=== PATIENT | male | born 1945 | race Caucasian/White ===

== ENCOUNTER → 2017-11-13 | Outpatient (CLI) | payer MEDICARE | LOC: OD 11:52 | PROVIDERS: ATTEND Radiology Radiation Oncology | DX: C61 Malignant neoplasm of prostate (principal) | CPT/HCPCS: 36415; 84153 ==

== ENCOUNTER → 2018-03-01 | Outpatient (CLI) | payer MEDICARE | LOC: OD 08:27 | PROVIDERS: ATTEND Radiology Radiation Oncology | DX: C61 Malignant neoplasm of prostate (principal); R97.20 Elevated prostate specific antigen [PSA] | CPT/HCPCS: 36415; 84153 ==

== ENCOUNTER → 2018-08-09 | Outpatient (CLI) | payer MEDICARE ==
[2018-08-09 15:22] LABS: HEMATOCRIT 34.7 % (37.9-51.0); HEMOGLOBIN 11.7 g/dL (13.5-17.0); MEAN CORPUSCULAR HEMOGLOBIN 30.4 pg (27.0-33.4); MEAN CORPUSCULAR HGB CONC 33.7 g/dL (32.0-36.0); MEAN CORPUSCULAR VOLUME 90 fl (80-97); PLATELET COUNT 259 10^3/uL (150-450); RED BLOOD COUNT 3.85 10^6/uL (4.35-5.55); RED CELL DISTRIBUTION WIDTH 16.9 % (11.5-14.0); WHITE BLOOD COUNT 7.5 10^3/uL (4.0-10.5)
[2018-08-09 15:33] LABS: ANION GAP 11 (5-19); BLOOD UREA NITROGEN 16 mg/dL (7-20); CALCIUM 9.4 mg/dL (8.4-10.2); CARBON DIOXIDE 25 mmol/L (22-30); CHLORIDE 106 mmol/L (98-107); GLUCOSE 111 mg/dL (75-110); POTASSIUM 4.3 mmol/L (3.6-5.0); SODIUM 141.5 mmol/L (137-145)
== END ==
LOC: OD 14:35
PROVIDERS: ATTEND Internal Medicine Cardiovascular Disease
DX: I10 Essential (primary) hypertension (principal); I73.9 Peripheral vascular disease, unspecified; E78.5 Hyperlipidemia, unspecified
CPT/HCPCS: 36415; 80048; 85027

== ENCOUNTER 2019-01-19 20:10 | Emergency (ER) | payer MEDICARE ==
--- NOTE | 2019-01-19 23:35 | ER Document Report ---
HPI - HPI Time Seen by Provider: 01/19/19 23:30 Pain Level: 4 Context: Patient is a 73-year-old male who presents emergency department with a chief complaint of left eye pain. He states that he feels he has something in his eye. He tried eyewash at home, but had little relief. [place]. And since then he is felt like he has a piece of something in his eye. He has a past medical history of prostate cancer, diabetes, stents in bilateral legs, and cardiac stents. - ROS Systems Reviewed and Negative: Yes All other systems reviewed and negative - CONSTITUTIONAL Constitutional: DENIES: Fever, Chills - EENT EENT: REPORTS: Eye problems - Redness and slight pain - CARDIOVASCULAR Cardiovascular: DENIES: Chest pain - RESPIRATORY Respiratory: DENIES: Coughing - GASTROINTESTINAL Gastrointestinal: DENIES: Abdominal Pain Past Medical History - Social History Smoking Status: Never Smoker Family History: Reviewed & Not Pertinent Vertical Provider Document - CONSTITUTIONAL Agree With Documented VS: Yes Exam Limitations: No Limitations General Appearance: No Apparent Distress - INFECTION CONTROL TRAVEL OUTSIDE OF THE [place] IN LAST 30 DAYS: No - HEENT HEENT: Atraumatic, Conjuctival Injection, Normocephalic, PERRLA Notes: Corneal abrasion noted to 4:00 saul on sclera - NECK Neck: Normal Inspection - RESPIRATORY Respiratory: No Respiratory Distress - CARDIOVASCULAR Cardiovascular: Regular Rate Pulses: Normal: Radial - MUSCULOSKELETAL/EXTREMETIES Musculoskeletal/Extremeties: FROM - NEURO Level of Consciousness: Awake, Alert, Appropriate - DERM Integumentary: Warm, Dry Course - Re-evaluation Re-evalutation: 01/20/19 A slit-lamp exam was done, along with a Boudreaux lamp exam. There is a corneal abrasion noted at the 4:00 saul on the patient's sclera. I did not visualize a grain of sand or any other foreign objects. I do not suspect patient has a globe rupture. Negative Isa sign. The patient will follow-up with ophthalmology if he continues to have pain and symptoms. He will be provided Polytrim eyedrops and Acular eyedrops for pain. He is in agreement with this plan. Verbal discharge instructions were given to the patient. They verbalized understanding. They are stable for discharge. - Vital Signs Vital signs: Temp Pulse Resp BP Pulse Ox 98.8 F 85 20 143/60 H 94 01/19/19 20:18 01/19/19 20:18 01/19/19 20:18 01/19/19 20:18 01/19/19 20:18 Discharge - Discharge Clinical Impression: Corneal abrasion Condition: Stable Disposition: HOME, SELF-CARE Instructions: Corneal Abrasion ([facility]), Eyedrop Use ([facility]) Additional Instructions: You have a corneal abrasion. This should improve in the next several days. You should apply the eye drops to the affected eye 4 times daily. Follow-up with eye doctor below at your earliest ability. Return if you have decreased vision, worsening pain, increased drainage from the eye, you notice redness or puffiness around the eye, you develop a fever greater than 101F, or you have any other symptoms that are concerning to you. Prescriptions: Ketorolac Tromethamine [Acular] 1 drop OS TIDP PRN #5 ml PRN Reason: Pain Scale Of 3 Referrals: ISABEL ROBLES MD [Primary Care Provider] - Follow up as needed SANJUANA GASPAR MD [ACTIVE STAFF] - Follow up in 3-5 days
[2019-01-19] MEDS ORDERED: TETRACAINE HCL 0.5% OPH SOLN 4 ML OS ONE (23:40)
[2019-01-19] MEDS ORDERED: POLYMYXIN B SULFATE/TMP OPH SOLN (10 ML/ER DISP) OS PRN (23:56)
[2019-01-19] MEDS ORDERED: KETOROLAC TROMETHAMINE 0.45% 4 DROP/0.4 ML DROPERETTE OS ONE (23:57)
[2019-01-20 02:19] VITALS: BP 140/56
== END 2019-01-20 00:05 | disposition home or self-care (01) ==
LOC: ER 20:10
DX: S05.00XA Injury of conjunctiva and corneal abrasion without foreign body, unspecified eye, initial encounter (principal); X58.XXXA Exposure to other specified factors, initial encounter; H57.12 Ocular pain, left eye; E11.9 Type 2 diabetes mellitus without complications; Z85.46 Personal history of malignant neoplasm of prostate
CPT/HCPCS: 99283; A9270; J3490 ×2

== ENCOUNTER 2020-07-26 01:40 | Emergency (ER) | payer MEDICARE ==
[2020-07-26 02:11] LABS: INTERNATIONAL RATION (INR) 1.77; PROTHROMBIN TIME 20.7 SEC (11.4-15.4)
[2020-07-26 02:12] LABS: MEAN CORPUSCULAR HEMOGLOBIN 32.7 pg (27.0-33.4); MEAN CORPUSCULAR HGB CONC 33.2 g/dL (32.0-36.0); MEAN CORPUSCULAR VOLUME 99 fl (80-97); PLATELET COUNT 183 10^3/uL (150-450); RED BLOOD COUNT 1.51 10^6/uL (4.35-5.55); RED CELL DISTRIBUTION WIDTH 16.6 % (11.5-14.0)
[2020-07-26 02:21] LABS: ALBUMIN 3.1 g/dL (3.5-5.0); ALKALINE PHOSPHATASE 49 U/L (38-126); ANION GAP 13 (5-19); ASPARTATE AMINO TRANSFERASE 22 U/L (17-59); BILIRUBIN,DIRECT 0.2 mg/dL (0.0-0.4); BILIRUBIN,TOTAL 0.4 mg/dL (0.2-1.3); BLOOD UREA NITROGEN 45 mg/dL (7-20); CALCIUM 8.1 mg/dL (8.4-10.2); CARBON DIOXIDE 15 mmol/L (22-30); CHLORIDE 108 mmol/L (98-107); CREATINE KINASE 57 U/L (55-170); GLUCOSE 257 mg/dL (75-110); POTASSIUM 4.4 mmol/L (3.6-5.0); TOTAL PROTEIN 5.2 g/dL (6.3-8.2)
[2020-07-26 02:32] LABS: CREATINE KINASE MB 3.91 ng/mL (<4.55)
[2020-07-26 02:38] LABS: ABSOLUTE LYMPHOCYTES# (MANUAL) 0.6 10^3/uL (0.5-4.7); ABSOLUTE MONOCYTES # (MANUAL) 0.3 10^3/uL (0.1-1.4); BASOPHILS % (MANUAL) 1 % (0-2); EOSINOPHILS % (MANUAL) 0 % (0-6); LYMPHOCYTES % (MANUAL) 6 % (13-45); MONOCYTES % (MANUAL) 3 % (3-13); SEGMENTED NEUTROPHILS % (MAN) 90 % (42-78); TOTAL CELLS COUNTED 100
[2020-07-26 02:40] LABS: PLATELET COMMENT ADEQUATE
[2020-07-26 02:41] LABS: ANISOCYTOSIS 1+; POLYCHROMASIA SLIGHT
[2020-07-26 02:44] LABS: HEMOGLOBIN 4.9 g/dL (13.5-17.0); OVALOCYTES SLIGHT
--- NOTE | 2020-07-26 02:54 | RADIOLOGY REPORT (SQ) ---
CHEST X-RAY 1 VIEW on 07/26/2020 at 2:11 AM CLINICAL INDICATION: Chest pain COMPARISON: None FINDINGS: Vascular calcification is noted in the aorta. There is patchy left lower lung opacity ingesting pneumonia. There are trace pleural effusions. Vascular calcification is noted in the aorta. Heart is within normal limits for size. IMPRESSION: Patchy left lower lung opacity likely representing pneumonia, differential diagnosis would include viral infections.
[2020-07-26 02:58] LABS: TROPONIN I 0.592 ng/mL
--- NOTE | 2020-07-26 03:08 | ER Document Report ---
ED General - General Chief Complaint: Chest Pain Stated Complaint: CHEST PAIN Time Seen by Provider: 07/26/20 01:54 Primary Care Provider: ISABEL ROBLES MD [Primary Care Provider] - Follow up as needed TRAVEL OUTSIDE OF THE [place] IN LAST 30 DAYS: No - HPI Context: Time:[0154] Chief Complaint: [Chest pain] [This is a 75-year-old male who presents to the emergency department complaining of chest pain that started approximately 2 days ago. Patient does not recall any particularly inciting factors. Patient states that he has chest pain with activity and chest pain with rest. Patient states that the pain got bad enough tonight that he decided to come in to be seen in the emergency department. Patient states he had some radiation of the pain up to his left jaw. History obtained from [patient] Symptoms began:[2 days ago] Onset: [Sudden] Timing: [Persistent] Quality: [Pressure/tightness] Intensity: [3.5] Location: [Chest] Radiation: [Left General] [The pain does not migrate to a new location.] Aggravating factors: [none] Relieving factors: [none] [Denies] SOB [Denies] nausea [Denies] vomiting [Denies] sweats [Denies] fever [Denies] cough [Denies] calf or leg swelling or pain - Related Data Allergies/Adverse Reactions: codeine Allergy (Verified 07/26/20 02:52) Penicillins Allergy (Verified 07/26/20 02:52) Past Medical History - General Information source: Patient - Social History Smoking Status: Former Smoker Frequency of alcohol use: None Drug Abuse: None Family History: Reviewed & Not Pertinent Patient has homicidal ideation: No Endocrine Medical History: Reports: Hx Diabetes Mellitus Type 2 Renal/ Medical History: Denies: Hx Peritoneal Dialysis Past Surgical History: Reports: Hx Cardiac Catheterization - stent, bilateral leg stents Review of Systems - Review of Systems Notes: Review of systems as below unless otherwise stated in HPI. CONSTITUTIONAL [No] fever, [No] chills. EYES [No] eye pain. ENT [No] URI symptoms, [No] sore throat, [No] ear pain. CARDIOVASCULAR Positive chest pain, [No] palpitations, [No] edema. RESPIRATORY [No] Cough, [No] SOB, [No] wheezing. GASTROINTESTINAL [No] abdominal pain, [No] nausea, [No] Diarrhea, [No] Vomiting, [No] constipation, [No] melena, [No] rectal bleeding. GENITOURINARY [No] dysuria, [No] urinary frequency, [No] hematuria, [No] urinary urgency MUSCULOSKELETAL [No] Back pain. SKIN [No] Rash. NEUROLOGIC [No] Headache, [No] recent seizures, [No] paralysis,[No] parathesias. ENDOCRINE [No] polyuria. HEMO/LYMPATIC [No] easy brusing PSYCHIATRIC [No] depression. Physical Exam - Vital signs Vitals: Pulse Resp Pulse Ox 87 21 H 99 07/26/20 01:43 07/26/20 01:43 07/26/20 01:43 - Notes Notes: CONSTITUTIONAL [Vital signs reviewed, Patient is hypotensive, Alert and oriented X 3, Normal stature. Patient has a pale appearance] HEAD [Atraumatic, Normocephalic.] EYES [Eyes are normal to inspection, No discharge from eyes, Extraocular muscles intact, Sclera are normal, Conjunctiva are normal.] ENT [External ears normal to inspection, Nose examination normal, Mouth normal to inspection.] NECK [Normal ROM, No jugular venous distention, No meningeal signs, ] RESPIRATORY CHEST [Chest is nontender, Breath sounds normal, No respiratory distress.] CARDIOVASCULAR [RRR, No murmurs, Normal S1 S2, No rub, No gallop.] ABDOMEN [Abdomen is nontender, No pulsatile masses, No other masses, Bowel sounds normal, No distension, No peritoneal signs, No hernias.] RECTAL HEME+ black stool BACK [There is no CVA Tenderness, There is no tenderness to palpation, Normal inspection.] UPPER EXTREMITY [Inspection normal, No cyanosis, No clubbing, No edema, LOWER EXTREMITY [Inspection normal, No cyanosis, No clubbing, No edema, No calf tenderness, NEURO [No focal motor deficits, No focal sensory deficits, Speech normal.] SKIN [Skin is warm, Skin is dry, Skin is normal color.] PSYCHIATRIC [Normal affect. ] Course - Re-evaluation Re-evalutation: 07/26/20 03:15 Results of ED MSE discussed with patient. Concerned about the patient's chest pain, abnormal EKG, low hemoglobin and heme positive stool discussed with patient. This patient will be in need of specialized services, EKG [facility], interventional cardiology that are not available at this facility. Patient was informed of plan to transfer him to [facility]. Patient was agreeable to this. - Vital Signs Vital signs: Temp Pulse Resp BP Pulse Ox 98.8 F 87 21 H 114/56 L 89 L 07/26/20 01:56 07/26/20 03:11 07/26/20 03:11 07/26/20 03:10 07/26/20 03:11 - Laboratory Result Diagrams: 07/26/20 01:40 07/26/20 01:40 Laboratory results interpreted by me: 07/26/20 07/26/20 07/26/20 01:40 01:40 01:40 RBC 1.51 L Hgb 4.9 L* Hct 14.9 L* MCV 99 H RDW 16.6 H Seg Neuts % (Manual) 90 H Lymphocytes % (Manual) 6 L Abs Neuts (Manual) 9.0 H PT 20.7 H Sodium 136.2 L Chloride 108 H Carbon Dioxide 15 L BUN 45 H Est GFR (MDRD) Non-Af 59 L Glucose 257 H Calcium 8.1 L Total Protein 5.2 L Albumin 3.1 L Crossmatch 07/26/20 02:15 RBC Hgb Hct MCV RDW Seg Neuts % (Manual) Lymphocytes % (Manual) Abs Neuts (Manual) PT Sodium Chloride Carbon Dioxide BUN Est GFR (MDRD) Non-Af Glucose Calcium Total Protein Albumin Crossmatch See Detail - Diagnostic Test Radiology reviewed: Reports reviewed - EKG Interpretation by Me Additional EKG results interpreted by me: 07/26/20 03:18 EKG obtained on 07/26/2020 at 0147 hrs. was interpreted by this MD. Findings: Sinus rhythm, rate 83, normal axis, left bundle branch block is present. There is no prior EKG available for comparison. Impression: Sinus rhythm with left bundle branch block of indeterminate age. 07/26/20 03:19 - Consults Dr. Thompson, attending, [facility] Time consulted: 02:30 - Given the patient is anemic, Dr. Thompson graciously accepted the patient onto his service for initial resuscitation and management for Dr. Barbosa with cardiology would be involved Reason for consultation: 07/26/20 03:21 Chest pain, hypotension, left bundle branch block on EKG Critical Care Note - Critical Care Note Total time excluding time spent on procedures (mins): 70 - Management of patient with chest pain, hypertension, GI bleed, abnormal EKG Discharge - Discharge Clinical Impression: Acute coronary syndrome, Severe anemia, Left bundle branch block GI bleed Qualifiers: GI bleed type/associated pathology: unspecified gastrointestinal hemorrhage type Qualified Code(s): K92.2 - Gastrointestinal hemorrhage, unspecified Hypotension Qualifiers: Hypotension type: unspecified hypotension type Qualified Code(s): I95.9 - Hypotension, unspecified Condition: Serious Disposition: Critical Access Hospital Referrals: ISABEL ROBLES MD [Primary Care Provider] - Follow up as needed
[2020-07-26 03:44] VITALS: BP 114/56
--- NOTE | 2020-07-26 08:15 | EKG REPORT ---
SEVERITY:- ABNORMAL ECG - SINUS RHYTHM PROBABLE LEFT ATRIAL ABNORMALITY LEFT BUNDLE BRANCH BLOCK : Confirmed by: Franklyn Gunderson 26-Jul-2020 08:15:11
[2020-07-26 13:23] LABS: PATH REVIEW PATHOLOGIST REVIEWED
[2020-07-27 08:01] LABS: HEMATOCRIT 14.9 % (37.9-51.0)
== END 2020-07-26 03:16 | disposition short-term general hospital (02) ==
LOC: ER 01:40
DX: I24.9 Acute ischemic heart disease, unspecified (principal); D64.9 Anemia, unspecified; I44.7 Left bundle-branch block, unspecified; K92.2 Gastrointestinal hemorrhage, unspecified; I95.9 Hypotension, unspecified; R07.9 Chest pain, unspecified; R68.84 Jaw pain; Z87.891 Personal history of nicotine dependence; E11.9 Type 2 diabetes mellitus without complications; Z88.0 Allergy status to penicillin
CPT/HCPCS: 93005; 99285; 86900; 86901; 36415; 82553; 36430; 86850; 82550; 85025; 85610; 82270; 80053; 84484; 86920; 71045; 93010; P9016